=== PATIENT | female | born 1995 | race Caucasian/White ===

== ENCOUNTER → 2017-04-21 | Emergency (ER) | payer OTHER ==
[~2017-04-21] VITALS: Ht 175.3 cm; Wt 52.2 kg
[~2017-04-21] MED LIST: KETO10TA2 PO; OSEL75CA PO; PROMETHAZINE D118 ML PO
== END | disposition home or self-care (01) ==
LOC: ER 02:20
DX: J09.X2 Influenza due to identified novel influenza A virus with other respiratory manifestations (principal); B34.9 Viral infection, unspecified